=== PATIENT | female | born 1990 | race Caucasian/White ===

== ENCOUNTER 2016-08-22 22:34 | Emergency (ER) | payer BC ==
[2016-08-23 00:44] LABS: Hematocrit 39 % (35-47); Mean Corpuscular HGB Conc 34 g/dl (31-36); Mean Corpuscular Hemoglobin 29 pg (27-31); Mean Corpuscular Volume 87 fL (80-97); Mean Platelet Volume 10 um3 (7.4-10.4); Red Blood Count 4.44 10^6/ul (4.0-5.4); Red Cell Distribution Width 14 % (10.5-15); White Blood Count 9.6 10^3/ul (3.5-10.8)
[2016-08-23 00:56] LABS: Albumin 4.3 g/dL (3.2-5.2); BUN/Creatinine Ratio 17.7 (8-20); Calcium 9.4 mg/dL (8.6-10.3); EGFR Non-African American 90.2 (>60); Globulin 3.7 g/dL (2-4); Potassium 3.5 mmol/L (3.5-5.0); Total Bilirubin 0.3 mg/dL (0.2-1.0)
[2016-08-23] MEDS ORDERED: Amoxicillin CAP* 500 MG PO ONE (01:21)
--- NOTE | 2016-08-23 01:56 | ED ---
Luis Antonio Dotson Aidan, scribed for Shreyas Grossman on 08/23/16 at 0045 . Respiratory - HPI Summary HPI Summary: 25 y/o female presents to the ED with a complaint of an acute, constant, moderate sore throat that has persisted for the past 3 days and acute, constant , moderate bilateral ear pain that began today. Additionally, she feels heavy in her chest and as though there is fluid in her chest. After an exercise, she felt short of breath. Lastly, she has a dry cough with mild associated pain. Pt is currently on BCPs. She denies smoking or Hx of asthma. - History of Current Complaint Chief Complaint: EDUpperRespComplaint Stated Complaint: UPPER RESPIRATORY/CHEST DISCOMFORT Time Seen by Provider: 08/23/16 00:08 Hx Obtained From: Patient Onset/Duration: Sudden Onset, Lasting Hours - ear pain, Lasting Days - sore throat Timing: Constant Initial Severity: Moderate Current Severity: Moderate Pain Intensity: 6 Character: Cough (Nonproductive), Dyspnea on Exertion - She mentioned feeling short of breath after exercising Sputum Amount: None Aggravating Factor(s): Other - her dry cough causes pain Alleviating Factor(s): Nothing - unknown Associated Signs and Symptoms: SOB - SOB on exertion, sore throat, bilateral ear pain, dry cough - Allergy/Home Medications Allergies/Adverse Reactions: Allergies Allergy/AdvReac Type Severity Reaction Status Date / Time No Known Allergies Allergy Verified 08/22/16 22:48 PMH/Surg Hx/FS Hx/Imm Hx Endocrine/Hematology History: Denies: Hx Diabetes Respiratory History: Denies: Hx Asthma - Surgical History Surgery Procedure, Year, and Place: Ear Tubes as a child Infectious Disease History: No Infectious Disease History: Denies: Hx Clostridium Difficile, Hx Hepatitis, Hx Human Immunodeficiency Virus (HIV), Hx of Known/Suspected MRSA, Hx Shingles, Hx Tuberculosis, Hx Known/ Suspected VRE, Hx Known/Suspected VRSA, History Other Infectious Disease, Traveled Outside the [place] in Last 30 Days - Family History Known Family History: Positive: Hypertension, Diabetes - Social History Occupation: Employed Full-time Lives: Alone Alcohol Use: Occasionally Substance Use Type: Reports: None Smoking Status (MU): Never Smoked Tobacco Review of Systems Constitutional: Negative Eyes: Negative Positive: Sore Throat, Ear Ache - bilateral. Negative: Epistaxis, Dental Pain, Nasal Discharge Positive: Shortness Of Breath - on exertion, Cough - dry, Other - feeling as though lungs have fluid in them/heavy chest Gastrointestinal: Negative Genitourinary: Negative Musculoskeletal: Negative Skin: Negative Neurological: Negative Psychological: Normal All Other Systems Reviewed And Are Negative: Yes Physical Exam Vital Signs On Initial Exam: Initial Vitals Temp Pulse Resp BP Pulse Ox 98.1 F 70 16 141/75 100 08/22/16 22:40 08/22/16 22:40 08/22/16 22:40 08/22/16 22:40 08/22/16 22:40 - Patricia Coma Scale Coma Scale Total: 15 Diagnostics - Vital Signs Vital Signs Temp Pulse Resp BP Pulse Ox 08/22/16 22:48 98.1 F 70 16 141/75 100 08/22/16 22:40 98.1 F 70 16 141/75 100 - Laboratory Result Diagrams: 08/23/16 00:25 08/23/16 00:25 Lab Statement: Any lab studies that have been ordered have been reviewed, and results considered in the medical decision making process. Disposition - Course Course Of Treatment: The patient has pharyngitis and otitis. - Diagnoses Provider Diagnoses: Pharyngitis, Otitis Discharge - Discharge Plan Condition: Stable Disposition: HOME Discharge Disposition Comment: Please return to the ED if symptoms worsen within 72 hours. Prescriptions: Amoxicillin (*) [Amoxicillin 875 MG (*)] 875 mg PO BID #20 tab Patient Education Materials: Pharyngitis (ED), Otitis Media (ED) Referrals: No Primary Care Phys,NOPCP [Primary Care Provider] - The documentation as recorded by the Luis Antonio segal Aidan accurately reflects the service I personally performed and the decisions made by , Shreyas Grossman.
[2016-08-23 02:16] VITALS: BP 130/63
== END 2016-08-23 02:10 | disposition home or self-care (01) ==
LOC: ED 22:34
DX: J02.9 Acute pharyngitis, unspecified (principal); R06.02 Shortness of breath; H66.90 Otitis media, unspecified, unspecified ear; H92.03 Otalgia, bilateral; R05 Cough
CPT/HCPCS: 36415; 80053; 84484; 85025; 85379; 99282; A9270-GY

== ENCOUNTER 2016-11-25 13:09 | Emergency (ER) | payer BC ==
[2016-11-25 13:19] VITALS: BP 131/68
--- NOTE | 2016-11-25 13:34 | UC ---
Complaint Female HPI - HPI Summary HPI Summary: Patient complaining of dysuria for the past 24 hours. Denies fever, or back pain - History Of Current Complaint Chief Complaint: UCGU Stated Complaint: URINARY COMPLAINT Time Seen by Provider: 11/25/16 13:22 Hx Obtained From: Patient Hx Last Menstrual Period: 10/28/16 ?: No Onset/Duration: Sudden Onset, Lasting Hours Timing: Lasting Hours Severity Initially: Mild Severity Currently: Mild Character: Burning Aggravating Factor(s): Urination - Allergies/Home Medications Allergies/Adverse Reactions: Allergies Allergy/AdvReac Type Severity Reaction Status Date / Time No Known Allergies Allergy Verified 11/25/16 13:19 PMH/Surg Hx/FS Hx/Imm Hx Previously Healthy: Yes - Surgical History Surgical History: Yes Surgery Procedure, Year, and Place: Ear Tubes as a child - Family History Known Family History: Positive: Hypertension, Diabetes - Social History Alcohol Use: Rare Substance Use Type: None Smoking Status (MU): Never Smoked Tobacco Household Exposure Type: Cigarettes Review of Systems Constitutional: Negative Skin: Negative Eyes: Negative ENT: Negative Respiratory: Negative Cardiovascular: Negative Gastrointestinal: Negative Genitourinary: Dysuria, Frequency Motor: Negative Neurovascular: Negative Musculoskeletal: Negative Neurological: Negative Psychological: Negative All Other Systems Reviewed And Are Negative: Yes Physical Exam Triage Information Reviewed: Yes Appearance: Well-Appearing, Well-Nourished, Pain Distress Vital Signs: Initial Vital Signs Temp 98.2 F 11/25/16 13:14 Pulse 72 11/25/16 13:14 Resp 17 11/25/16 13:14 BP 131/68 11/25/16 13:14 Pulse Ox 100 11/25/16 13:14 Vital Signs Reviewed: Yes Eye Exam: Normal ENT Exam: Normal Dental Exam: Normal Neck exam: Normal Respiratory Exam: Normal Cardiovascular Exam: Normal Abdomen Description: Positive: Nontender, No Organomegaly, Soft, CVA Tenderness (R) - neg, CVA Tenderness (L) - neg Bowel Sounds: Positive: Present Musculoskeletal Exam: Normal Neurological Exam: Normal Psychological Exam: Normal Skin Exam: Normal Complaint Female Dx - Course Course Of Treatment: hx obtained, exam performed, meds reviewed, treated for UTI - Differential Dx/Diagnosis Differential Diagnosis/HQI/PQRI: Ureteral Stone, Urinary Tract Infection Provider Diagnoses: UTI Discharge - Discharge Plan Condition: Stable Disposition: HOME Prescriptions: Cephalexin CAP* [Keflex CAP*] 500 mg PO BID #14 cap Patient Education Materials: Urinary Tract Infection in Women (ED) Additional Instructions: 1. Take the medication as prescribed. 2. Increase your fluid intake and get plenty of rest.
== END 2016-11-25 13:54 | disposition home or self-care (01) ==
LOC: UCCORT 13:09
DX: N39.0 Urinary tract infection, site not specified (principal); Z32.02 Encounter for pregnancy test, result negative; Z77.22 Contact with and (suspected) exposure to environmental tobacco smoke (acute) (chronic)
CPT/HCPCS: 81003; 84702; 87086; 99212; G0463

== ENCOUNTER 2017-05-04 20:51 | Emergency (ER) | payer BC ==
[2017-05-04 21:09] VITALS: BP 130/64
--- NOTE | 2017-05-04 21:26 | UC ---
Complaint Female HPI - HPI Summary HPI Summary: Pt c/o low back discomfort, suprapubic discomfort, and vaginal discharge that is yellow and odiferous. Pt reports that she had unprotected sexual intercourse 2 weeks ago. - History Of Current Complaint Stated Complaint: URINARY Time Seen by Provider: 05/04/17 21:06 Hx Obtained From: Patient Hx Last Menstrual Period: 04/23/17 ?: No Onset/Duration: Gradual Onset, Lasting Weeks, Still Present Timing: Constant Severity Initially: Mild Severity Currently: Mild Character: Dull, Burning Aggravating Factor(s): Urination Associated Signs And Symptoms: Positive: Back Pain, Vaginal Discharge - Risk Factors Ectopic Risk Factor: Negative Ovarian Torsion Risk Factor: Negative - Allergies/Home Medications Allergies/Adverse Reactions: Allergies Allergy/AdvReac Type Severity Reaction Status Date / Time No Known Allergies Allergy Verified 05/04/17 21:09 Home Medications: Home Medications Venlafaxine HCl [Effexor XR-] 37.5 mg PO DAILY 05/04/17 [History Confirmed 05/04] PMH/Surg Hx/FS Hx/Imm Hx Previously Healthy: Yes - Surgical History Surgical History: Yes Surgery Procedure, Year, and Place: Ear Tubes as a child - Family History Known Family History: Positive: Hypertension, Diabetes - Social History Lives: With Family Alcohol Use: Rare Substance Use Type: None Smoking Status (MU): Never Smoked Tobacco Have You Smoked in the Last Year: No Household Exposure Type: Cigarettes - Immunization History Most Recent Influenza Vaccination: none 2016 Review of Systems Constitutional: Negative Skin: Negative Eyes: Negative ENT: Negative Respiratory: Negative Cardiovascular: Negative Gastrointestinal: Negative Genitourinary: Dysuria, Frequency, Vaginal/Penile Discharge Motor: Negative Neurovascular: Negative Musculoskeletal: Negative Neurological: Negative Psychological: Negative Is Patient Immunocompromised?: No All Other Systems Reviewed And Are Negative: Yes Physical Exam Triage Information Reviewed: Yes Appearance: Well-Appearing Vital Signs: Initial Vital Signs Temp 99.2 F 05/04/17 20:59 Pulse 72 05/04/17 20:59 Resp 20 05/04/17 20:59 BP 130/64 05/04/17 20:59 Pulse Ox 100 05/04/17 20:59 Vital Signs Reviewed: Yes Eye Exam: Normal ENT Exam: Normal Neck exam: Normal Respiratory Exam: Normal Cardiovascular Exam: Normal Abdominal Exam: Normal Abdomen Description: Positive: Other: - suprapubic tenderness, pt dewclined vaginal exam Musculoskeletal Exam: Normal Neurological Exam: Normal Psychological Exam: Normal Skin Exam: Normal Complaint Female Dx - Differential Dx/Diagnosis Differential Diagnosis/HQI/PQRI: Sexually Transmitted Disease, Urinary Tract Infection Provider Diagnoses: UTI. VAginal discharge-STD exposure? Discharge - Discharge Plan Condition: Stable Disposition: HOME Prescriptions: Cephalexin CAP* [Keflex 500 CAP*] 500 mg PO Q12H #14 cap Patient Education Materials: Urinary Tract Infection in Women (ED) Referrals: No Primary Care Phys,NOPCP [Primary Care Provider] - If Needed
[2017-05-04] MEDS ORDERED: cefTRIAXone VIAL(*) 250 MG VIAL IM ONE (21:27)
[2017-05-04] MEDS ORDERED: Azithromycin TAB* 250 MG PO ONE (21:27)
[2017-05-04] MEDS ORDERED: Lidocaine 1% MPF* 2 ML VIAL ONE (21:48)
== END 2017-05-04 22:13 | disposition home or self-care (01) ==
LOC: UCCORT 20:51
DX: N39.0 Urinary tract infection, site not specified (principal); N89.8 Other specified noninflammatory disorders of vagina; Z77.22 Contact with and (suspected) exposure to environmental tobacco smoke (acute) (chronic)
CPT/HCPCS: 81003; 84702; 87086; 87491; 87591; 96372; 99212; A9270-GY; G0463; J0696

== ENCOUNTER 2017-05-07 16:53 | Emergency (ER) | payer BC ==
[2017-05-07 18:26] VITALS: BP 115/63
[2017-05-07] MEDS ORDERED: Fluconazole 100 MG TAB* TAB PO ONE (18:39)
--- NOTE | 2017-05-07 18:43 | UC ---
Skin Complaint HPI - HPI Summary HPI Summary: Pt c/o gradual onset of red raised, tender/burning grown and labias. Pt was treated 3 days ago for STI exposure and UTI. Pt also c/o thick white vaginal discharge. - History of Current Complaint Chief Complaint: UCSkin Time Seen by Provider: 05/07/17 18:28 Stated Complaint: RASH Hx Obtained From: Patient Hx Last Menstrual Period: 04/16/17 ?: No Onset/Duration: Gradual Onset, Lasting Days, Still Present, Worse Since - onset Timing: Constant Onset Severity: Mild Current Severity: Moderate Location: Discrete Character: Redness, Raised Aggravating Factor(s): Touch Alleviating Factor(s): Unknown Associated Signs & Symptoms: Positive: Rash, Tenderness Related History: Recent change in medication - Allergy/Home Medications Allergies/Adverse Reactions: Allergies Allergy/AdvReac Type Severity Reaction Status Date / Time No Known Allergies Allergy Verified 05/07/17 18:26 Review of Systems Constitutional: Negative Skin: Rash Eyes: Negative ENT: Negative Respiratory: Negative Cardiovascular: Negative Gastrointestinal: Negative Genitourinary: Vaginal/Penile Burning, Vaginal/Penile Discharge Motor: Negative Neurovascular: Negative Musculoskeletal: Negative Neurological: Negative Psychological: Negative Is Patient Immunocompromised?: No All Other Systems Reviewed And Are Negative: Yes PMH/Surg Hx/FS Hx/Imm Hx Previously Healthy: Yes - Surgical History Surgical History: Yes Surgery Procedure, Year, and Place: Ear Tubes as a child - Family History Known Family History: Positive: Hypertension, Diabetes - Social History Occupation: Employed Full-time Lives: With Family Alcohol Use: Rare Substance Use Type: None Smoking Status (MU): Never Smoked Tobacco Have You Smoked in the Last Year: No Household Exposure Type: Cigarettes - Immunization History Most Recent Influenza Vaccination: none 2016 Physical Exam Triage Information Reviewed: Yes Appearance: Well-Appearing Vital Signs: Initial Vital Signs Temp 99.5 F 05/07/17 18:21 Pulse 65 05/07/17 18:21 Resp 16 05/07/17 18:21 BP 115/63 05/07/17 18:21 Pulse Ox 100 05/07/17 18:21 Vital Signs Reviewed: Yes Eye Exam: Normal ENT Exam: Normal Neck exam: Normal Respiratory Exam: Normal Cardiovascular Exam: Normal Abdominal Exam: Normal Musculoskeletal Exam: Normal Neurological Exam: Normal Psychological Exam: Normal Skin Exam: Other - groin and outer labia raised red skin, thick white/green discahrge in folds of labia majora Course/Dx - Differential Diagnoses - Skin Complaint Differential Diagnoses: Tinea - Diagnoses Provider Diagnoses: vulvovaginal candiasis Discharge - Discharge Plan Condition: Stable Disposition: HOME Prescriptions: Fluconazole 100 MG TAB* [Diflucan 100 MG TAB*] 100 mg PO DAILY #2 tab Miconazole Nitrate Vaginal [Monistat 3 Combination Pa 200-2 mg-% (9Gm)] 1 kit VA DAILY #1 kit Patient Education Materials: Vulvovaginal Candidiasis (ED), Skin Yeast Infection (ED) Referrals: No Primary Care Phys,NOPCP [Primary Care Provider] - If Needed
== END 2017-05-07 18:52 | disposition home or self-care (01) ==
LOC: UCCORT 16:53
DX: B37.3 Candidiasis of vulva and vagina (principal); Z87.440 Personal history of urinary (tract) infections; Z77.22 Contact with and (suspected) exposure to environmental tobacco smoke (acute) (chronic)
CPT/HCPCS: 87070; 99212; A9270-GY; G0463

== ENCOUNTER 2017-10-25 21:18 | Emergency (ER) | payer SELFPAY ==
[2017-10-25 21:32] VITALS: BP 141/62
[2017-10-25] MEDS ORDERED: predniSONE TAB* 20 MG PO ONE (21:40)
--- NOTE | 2017-10-25 21:40 | UC ---
Throat Pain/Nasal Lucho HPI - HPI Summary HPI Summary: Started with sore throat yesterday. Much worse today. Some congestion. No cough. Some chills. Slight headache - History of Current Complaint Stated Complaint: COLD SYMPTOMS/EAR PAIN Hx Obtained From: Patient Hx Last Menstrual Period: 09/30/17 ?: No Onset/Duration: Sudden Onset, Lasting Days - 1, Worse Since - onset Severity: Severe Pain Intensity: 8 Cough: None Associated Signs & Symptoms: Positive: Dysphagia, Nasal Discharge Related History: Seasonal Allergies - Allergies/Home Medications Allergies/Adverse Reactions: Allergies Allergy/AdvReac Type Severity Reaction Status Date / Time No Known Allergies Allergy Verified 10/25/17 21:28 Home Medications: Home Medications Norgestimate-Ethinyl Estradiol [Tate-Linyah 28 Tablet] 1 tab PO DAILY 10/25/17 [ History Confirmed 10/25/17] Venlafaxine EXT RELEASE CAP* [Effexor Xr CAP*] 75 mg PO DAILY 10/25/17 [History Confirmed 10/25/17] PMH/Surg Hx/FS Hx/Imm Hx Previously Healthy: Yes - Surgical History Surgical History: Yes Surgery Procedure, Year, and Place: Ear Tubes as a child - Family History Known Family History: Positive: Cardiac Disease, Hypertension, Diabetes - Social History Occupation: Employed Part-time Lives: Alone - with Boyfriend Alcohol Use: Rare Substance Use Type: None Smoking Status (MU): Never Smoked Tobacco Have You Smoked in the Last Year: No Household Exposure Type: Cigarettes - Immunization History Most Recent Influenza Vaccination: none 2017 Review of Systems Constitutional: Chills ENT: Sore Throat, Nasal Discharge Is Patient Immunocompromised?: No All Other Systems Reviewed And Are Negative: Yes Physical Exam Triage Information Reviewed: Yes Appearance: Ill-Appearing, Pain Distress - with swollowing, Obese Vital Signs: Initial Vital Signs Temp 99 F 10/25/17 21:25 Pulse 97 10/25/17 21:25 Resp 18 10/25/17 21:25 BP 141/62 10/25/17 21:25 Pulse Ox 100 10/25/17 21:25 Vital Signs Reviewed: Yes Eyes: Positive: Conjunctiva Clear ENT: Positive: Pharynx normal - post posterior pharynx lymphoid hyperplasia., Nasal congestion, TMs normal - TM's retracted Neck exam: Normal Respiratory Exam: Normal Respiratory: Positive: Wheezing - Slight wheeze with cough Cardiovascular Exam: Normal Musculoskeletal Exam: Normal Neurological Exam: Normal Psychological Exam: Normal Skin Exam: Normal Throat Pain/Nasal Course/Dx - Differential Dx/Diagnosis Differential Diagnosis/HQI/PQRI: Peritonsillar Abscess, Pharyngitis, Tonsillitis , URI Provider Diagnoses: Acute URI. Acute pharygitis Discharge - Sign-Out/Discharge Documenting (check all that apply): Discharge/Admit/Transfer - Discharge Plan Condition: Stable Disposition: HOME Prescriptions: predniSONE TAB* [Deltasone 20 MG TAB*] 20 mg PO DAILY #18 tab Patient Education Materials: Pharyngitis (ED), Prednisone (By mouth), Upper Respiratory Infection (ED) Referrals: No Primary Care Phys,NOPCP [Primary Care Provider] - - Billing Disposition and Condition Condition: STABLE Disposition: Home
[2017-10-25] MEDS ORDERED: predniSONE TAB* 20 MG ONE (21:41)
== END 2017-10-25 21:49 | disposition home or self-care (01) ==
LOC: UCCORT 21:18
DX: J06.9 Acute upper respiratory infection, unspecified (principal); J02.9 Acute pharyngitis, unspecified; Z77.22 Contact with and (suspected) exposure to environmental tobacco smoke (acute) (chronic)
CPT/HCPCS: 87651; 99212; G0463; J7512

== ENCOUNTER 2017-10-30 11:14 | Emergency (ER) | payer SELFPAY ==
[2017-10-30 11:48] VITALS: BP 139/83
--- NOTE | 2017-10-30 12:00 | UC ---
Respiratory Complaint HPI - HPI Summary HPI Summary: seen 5 days ago and diagnosed with viral pharyngitis---rx with prednisone. Her today with body aches, fatigue, throat seems better on the prednisone. - History of Current Complaint Chief Complaint: UCGeneralIllness Stated Complaint: RECHECK UPPER RESP,ST,SKIN Time Seen by Provider: 10/30/17 11:48 Hx Obtained From: Patient Hx Last Menstrual Period: 10/02/17 ?: No Onset/Duration: Sudden Onset, Lasting Days - 7, Still Present Timing: Constant Severity Initially: Moderate Severity Currently: Moderate Aggravating Factors: Nothing Associated Signs And Symptoms: Positive: URI - Allergies/Home Medications Allergies/Adverse Reactions: Allergies Allergy/AdvReac Type Severity Reaction Status Date / Time No Known Allergies Allergy Verified 10/30/17 11:48 PMH/Surg Hx/FS Hx/Imm Hx Previously Healthy: No Psychological History: Depression - Surgical History Surgical History: Yes Surgery Procedure, Year, and Place: Ear Tubes as a child - Family History Known Family History: Positive: Cardiac Disease, Hypertension, Diabetes - Social History Occupation: Employed Full-time - cable [employer] Lives: With Family Alcohol Use: Rare Substance Use Type: None Smoking Status (MU): Never Smoked Tobacco Have You Smoked in the Last Year: No Household Exposure Type: Cigarettes - Immunization History Most Recent Influenza Vaccination: none 2016 Review of Systems Constitutional: Chills, Fatigue Skin: Negative Eyes: Negative ENT: Sore Throat Respiratory: Negative Cardiovascular: Negative Gastrointestinal: Negative Genitourinary: Negative Motor: Negative Neurovascular: Negative Musculoskeletal: Arthralgia, Myalgia Neurological: Other - fatigue Psychological: Negative Is Patient Immunocompromised?: No All Other Systems Reviewed And Are Negative: Yes Physical Exam Triage Information Reviewed: Yes Appearance: Well-Appearing, No Pain Distress, Well-Nourished Vital Signs: Initial Vital Signs Temp 98.5 F 10/30/17 11:42 Pulse 82 10/30/17 11:42 Resp 18 10/30/17 11:42 BP 139/83 10/30/17 11:42 Pulse Ox 100 10/30/17 11:42 Vital Signs Reviewed: Yes Eye Exam: Normal Eyes: Positive: Conjunctiva Clear ENT Exam: Normal ENT: Positive: Normal ENT inspection, Hearing grossly normal, Pharyngeal erythema, TMs normal, Uvula midline. Negative: Nasal congestion, Tonsillar swelling, Tonsillar exudate, Trismus, Muffled voice, Hoarse voice, Dental tenderness, Sinus tenderness Dental Exam: Normal Neck exam: Normal Neck: Positive: Supple, Nontender Respiratory Exam: Normal Respiratory: Positive: Chest non-tender, Lungs clear, Normal breath sounds, No respiratory distress, No accessory muscle use Cardiovascular Exam: Normal Cardiovascular: Positive: RRR, No Murmur, Pulses Normal, Brisk Capillary Refill Abdominal Exam: Normal Abdomen Description: Positive: Nontender, No Organomegaly, Soft. Negative: CVA Tenderness (R), CVA Tenderness (L), Distended, Guarding, Hepatomegaly, Peritoneal Signs, Splenomegaly Bowel Sounds: Positive: Present Musculoskeletal Exam: Normal Musculoskeletal: Positive: Strength Intact, ROM Intact, No Edema Neurological Exam: Normal Neurological: Positive: Alert, Muscle Tone Normal Psychological Exam: Normal Skin Exam: Normal UC Diagnostic Evaluation - Laboratory O2 Sat by Pulse Oximetry: 100 Respiratory Course/Dx - Course Course Of Treatment: labs-cbc, mono, cmp rest work note finish prednisone follow with pcp prn (referrals made) - Differential Dx/Diagnosis Provider Diagnoses: Viral illness Discharge - Sign-Out/Discharge Documenting (check all that apply): Patient Departure - Discharge Plan Condition: Stable Disposition: HOME Patient Education Materials: Pharyngitis (ED), Viral Syndrome (ED) Forms: *Work Release Referrals: [facility] [Outside] - If Needed MARLIN Yousif [Medical Doctor] - If Needed - Billing Disposition and Condition Condition: STABLE Disposition: Home
[2017-10-30 19:01] LABS: ABS Basophils 0 10^3/ul (0-0.2); ABS Eosinophils 0.1 10^3/ul (0-0.6); ABS Lymphocytes 1.5 10^3/ul (1.0-4.8); ABS Monocytes 0.5 10^3/ul (0-0.8); ABS Neutrophils 11.7 10^3/ul (1.5-7.7); ABS Nucleated RBC 0 10^3/ul; Eosinophil % 0.5 % (0-6); Hematocrit 40 % (35-47); Hemoglobin 13.5 g/dl (12.0-16.0); Lymphocyte % 10.6 % (25-47); Mean Corpuscular HGB Conc 34 g/dl (31-36); Mean Corpuscular Hemoglobin 30 pg (27-31); Mean Corpuscular Volume 89 fL (80-97); Mean Platelet Volume 9.6 um3 (7.4-10.4); Nucleated Red Blood Cells % 0; Platelet Count 382 10^3/ul (150-450); Red Blood Count 4.53 10^6/ul (4.00-5.40); Red Cell Distribution Width 14 % (10.5-15); White Blood Count 13.7 10^3/ul (3.5-10.8)
[2017-10-30 19:08] LABS: EGFR Non-African American 108.1 (>60)
--- NOTE | 2017-10-31 08:03 | UC ---
- Progress Note Progress Note: Reviewed blood work and progress note from 10/30/17. RN to call pt, monospot negative, WBC elevated and BS 112, but has taken prednisone. RN to remind pt to f/u with pcp, if possible early next week. Seek medical attention for worse or new problems in the meantime. Discharge - Sign-Out/Discharge Documenting (check all that apply): Post-Discharge Follow Up - Discharge Plan Condition: Stable Disposition: HOME Patient Education Materials: Pharyngitis (ED), Viral Syndrome (ED) Forms: *Work Release Referrals: [facility] [Outside] - If Needed MARLIN Yousif [Medical Doctor] - If Needed - Billing Disposition and Condition Condition: STABLE Disposition: Home
== END 2017-10-30 12:31 | disposition home or self-care (01) ==
LOC: UCCORT 11:14
DX: B34.9 Viral infection, unspecified (principal)
CPT/HCPCS: 36415; 80053; 85025; 86308; 99211; G0463

== ENCOUNTER 2017-11-24 17:17 | Emergency (ER) | payer SELFPAY ==
[2017-11-24 18:28] VITALS: BP 136/95
--- NOTE | 2017-11-24 19:01 | UC ---
Complaint Female HPI - HPI Summary HPI Summary: felt like a UTI was starting 3 days ago-today symptoms got much worse, urinaty urgency burning frequency and one episode of incontinence - History Of Current Complaint Chief Complaint: UCGU Stated Complaint: URINARY Time Seen by Provider: 11/24/17 18:43 Hx Obtained From: Patient Hx Last Menstrual Period: 10/23/17 ?: No Onset/Duration: Sudden Onset, Lasting Days - 4, Still Present, Worse Since - today Timing: Constant Pain Intensity: 7 Pain Scale Used: 0-10 Numeric Character: Burning Aggravating Factor(s): Urination Alleviating Factor(s): Nothing Associated Signs And Symptoms: Positive: Back Pain - Allergies/Home Medications Allergies/Adverse Reactions: Allergies Allergy/AdvReac Type Severity Reaction Status Date / Time No Known Allergies Allergy Verified 11/24/17 18:28 Home Medications: Home Medications busPIRone TAB* [Buspar TAB*] 10 mg PO BID 11/24/17 [History Confirmed 11/24/17] PMH/Surg Hx/FS Hx/Imm Hx Previously Healthy: No Psychological History: Anxiety, Depression - Surgical History Surgical History: Yes Surgery Procedure, Year, and Place: Ear Tubes as a child - Family History Known Family History: Positive: Cardiac Disease, Hypertension, Diabetes - Social History Occupation: Employed Full-time Lives: With Family Alcohol Use: Rare Substance Use Type: None Smoking Status (MU): Never Smoked Tobacco Have You Smoked in the Last Year: No Household Exposure Type: Cigarettes - Immunization History Most Recent Influenza Vaccination: none 2016 Review of Systems Constitutional: Negative Skin: Negative Eyes: Negative ENT: Negative Respiratory: Negative Cardiovascular: Negative Gastrointestinal: Negative Genitourinary: Dysuria, Frequency, Urgency Motor: Negative Neurovascular: Negative Musculoskeletal: Negative Neurological: Negative Psychological: Negative Is Patient Immunocompromised?: No All Other Systems Reviewed And Are Negative: Yes Physical Exam Triage Information Reviewed: Yes Appearance: Well-Appearing, No Pain Distress, Well-Nourished Vital Signs: Initial Vital Signs Temp 98.3 F 11/24/17 18:21 Pulse 100 11/24/17 18:21 Resp 18 11/24/17 18:21 BP 136/95 11/24/17 18:21 Pulse Ox 100 11/24/17 18:21 Vital Signs Reviewed: Yes Eye Exam: Normal Eyes: Positive: Conjunctiva Clear ENT Exam: Normal ENT: Positive: Normal ENT inspection, Hearing grossly normal. Negative: Trismus , Muffled voice, Hoarse voice Neck exam: Normal Neck: Positive: Supple, Nontender Respiratory Exam: Normal Respiratory: Positive: Normal breath sounds, No respiratory distress, No accessory muscle use Cardiovascular Exam: Normal Cardiovascular: Positive: RRR, No Murmur, Pulses Normal, Brisk Capillary Refill Abdominal Exam: Normal Abdomen Description: Positive: Nontender, No Organomegaly, Soft. Negative: CVA Tenderness (R), CVA Tenderness (L), Distended, Guarding, Hernia @, McBurney's Point Tenderness, Peritoneal Signs Bowel Sounds: Positive: Present Musculoskeletal Exam: Normal Musculoskeletal: Positive: Strength Intact, ROM Intact Neurological Exam: Normal Neurological: Positive: Alert, Muscle Tone Normal Psychological Exam: Normal Skin Exam: Normal Diagnostics - Laboratory Diagnostic Studies Completed/Ordered: ua- (-) preg, +3 blood, +1 leukoesterace Complaint Female Dx - Course Course Of Treatment: increase fluids, bactrim, pyridium, follow with pcp or [facility]--will culture urine, - Differential Dx/Diagnosis Provider Diagnoses: UTI Discharge - Sign-Out/Discharge Documenting (check all that apply): Patient Departure - Discharge Plan Condition: Stable Disposition: HOME Prescriptions: Phenazopyridine TAB* [Pyridium 100 mg TAB*] 100 mg PO TID PRN #9 tab PRN Reason: urinary pain and burning Sulfamethox/Trimethoprim DS* [Bactrim DS 800/160 TAB*] 1 tab PO BID #10 tab Patient Education Materials: Phenazopyridine (By mouth), Urinary Tract Infection in Women (ED), Urinary Urgency and Frequency (DC) Forms: *Work Release Referrals: [facility] [Outside] - If Needed MARLIN Lopez [Medical Doctor] - If Needed - Billing Disposition and Condition Condition: STABLE Disposition: Home
== END 2017-11-24 19:15 | disposition home or self-care (01) ==
LOC: UCCORT 17:17
DX: N39.0 Urinary tract infection, site not specified (principal); F41.8 Other specified anxiety disorders
CPT/HCPCS: 81003; 84702; 87086; 99212; G0463

== ENCOUNTER 2018-02-26 07:17 | Emergency (ER) | payer BC ==
[2018-02-26 07:40] VITALS: BP 140/73
[2018-02-26] MEDS ORDERED: Albuterol HFA INHALER* 8 gm MDI INH ONE (07:54)
--- NOTE | 2018-02-26 08:00 | ED ---
Respiratory - HPI Summary HPI Summary: pt states that she started to feel ill yesterday. she states that she had mild cough and intermittent wheezing. she states several people are sick at work. she denies any productive cough, fever, chills. she has no complaints currently. - History of Current Complaint Chief Complaint: UCRespiratory Stated Complaint: UPPER RESPITORY Hx Obtained From: Patient Onset/Duration: Gradual Onset Initial Severity: Mild Current Severity: None Pain Intensity: 5 Character: Wheezing - intermittently, Cough (Nonproductive) Sputum Amount: None Aggravating Factor(s): Nothing Alleviating Factor(s): Nothing - Allergy/Home Medications Allergies/Adverse Reactions: Allergies Allergy/AdvReac Type Severity Reaction Status Date / Time No Known Allergies Allergy Verified 02/26/18 07:31 PMH/Surg Hx/FS Hx/Imm Hx Previously Healthy: Yes Endocrine/Hematology History: Denies: Hx Diabetes Respiratory History: Denies: Hx Asthma - Surgical History Surgery Procedure, Year, and Place: Ear Tubes as a child Infectious Disease History: No Infectious Disease History: Denies: Hx Clostridium Difficile, Hx Hepatitis, Hx Human Immunodeficiency Virus (HIV), Hx of Known/Suspected MRSA, Hx Shingles, Hx Tuberculosis, Hx Known/ Suspected VRE, Hx Known/Suspected VRSA, History Other Infectious Disease, Traveled Outside the [place] in Last 30 Days - Family History Known Family History: Positive: Cardiac Disease, Hypertension, Diabetes - Social History Alcohol Use: Rare Substance Use Type: Reports: Marijuana Substance Use Comment - Amount & Last Used: OCCASIONALLY Smoking Status (MU): Never Smoked Tobacco Have You Smoked in the Last Year: No Review of Systems Constitutional: Negative Eyes: Negative ENT: Negative Positive: Other Positive: Cough - mild wheezing Gastrointestinal: Negative Genitourinary: Negative Musculoskeletal: Negative Skin: Negative Neurological: Negative Psychological: Normal All Other Systems Reviewed And Are Negative: No Physical Exam Triage Information Reviewed: Yes Vital Signs On Initial Exam: Initial Vitals Temp Pulse Resp BP Pulse Ox 97.6 F 77 18 140/73 100 02/26/18 07:33 02/26/18 07:33 02/26/18 07:33 02/26/18 07:33 02/26/18 07:33 Vital Signs Reviewed: Yes Appearance: Positive: Well-Appearing, No Pain Distress Skin: Positive: Warm, Dry Head/Face: Positive: Normal Head/Face Inspection Eyes: Positive: Normal, EOMI ENT: Positive: Normal ENT inspection, Hearing grossly normal, Pharynx normal Neck: Positive: Supple, Nontender Respiratory/Lung Sounds: Positive: Clear to Auscultation, Breath Sounds Present Cardiovascular: Positive: Normal, RRR Abdomen Description: Positive: Nontender, Soft Bowel Sounds: Positive: Present Musculoskeletal: Positive: Normal, Strength/ROM Intact Neurological: Positive: Normal, Sensory/Motor Intact, Alert, Oriented to Person Place, Time, CN Intact II-III Psychiatric: Positive: Normal AVPU Assessment: Alert Diagnostics - Vital Signs Vital Signs Temp Pulse Resp BP Pulse Ox 02/26/18 07:33 97.6 F 77 18 140/73 100 - Laboratory Lab Statement: Any lab studies that have been ordered have been reviewed, and results considered in the medical decision making process. Disposition - Course Course Of Treatment: pt appears to have a viral uri. it is very mild. pt will be given an inhaler and spacer. pt instructed how to use. no evidence of a bacterial infection. pt encouraged to f/u with pcp. - Diagnoses Provider Diagnoses: Viral upper respiratory illness Discharge - Sign-Out/Discharge Documenting (check all that apply): Patient Departure All imaging exams completed and their final reports reviewed: No Studies - Discharge Plan Condition: Stable Disposition: HOME Patient Education Materials: Wheezing (ED) Referrals: No Primary Care Phys,NOPCP [Primary Care Provider] - [facility] [Provider Group] Additional Instructions: return if worse or any new symptoms. Take all medications as previously instructed. - Billing Disposition and Condition Condition: STABLE Disposition: Home
== END 2018-02-26 08:14 | disposition home or self-care (01) ==
LOC: UCCORT 07:17
DX: J06.9 Acute upper respiratory infection, unspecified (principal)
CPT/HCPCS: 99212; A9270-GY; G0463

== ENCOUNTER 2018-06-14 20:44 | Emergency (ER) | payer BC ==
[2018-06-14 20:57] VITALS: BP 130/53
--- NOTE | 2018-06-14 21:03 | UC ---
Throat Pain/Nasal Lucho HPI - HPI Summary HPI Summary: 27-year-old female presents with complaints of headache and sore throat that started last evening. States she had one episode of vomiting last night and no further episodes today. Associated with some mild nasal congestion, denies fever, chills, ear pain, dysphagia, cough, chest pain, shortness of breath, abdominal pain, or diarrhea. - History of Current Complaint Chief Complaint: UCGeneralIllness Stated Complaint: SORE THROAT Time Seen by Provider: 06/14/18 20:50 Hx Obtained From: Patient Hx Last Menstrual Period: [id number] Pain Intensity: 4 - Allergies/Home Medications Allergies/Adverse Reactions: Allergies Allergy/AdvReac Type Severity Reaction Status Date / Time No Known Allergies Allergy Verified 06/14/18 20:57 Home Medications: Home Medications Ibuprofen TAB* [Motrin TAB* 400 MG] 400 mg PO Q6H PRN 06/14/18 [History Confirmed 06/14/18] PMH/Surg Hx/FS Hx/Imm Hx Previously Healthy: Yes Psychological History: Depression - Surgical History Surgical History: Yes Surgery Procedure, Year, and Place: Ear Tubes as a child - Family History Known Family History: Positive: Cardiac Disease, Hypertension, Diabetes - Social History Occupation: Employed Full-time Lives: Alone Alcohol Use: Rare Substance Use Type: Marijuana Substance Use Comment - Amount & Last Used: daily Smoking Status (MU): Never Smoked Tobacco Have You Smoked in the Last Year: No Household Exposure Type: Cigarettes - Immunization History Most Recent Influenza Vaccination: none 2016 Review of Systems All Other Systems Reviewed And Are Negative: Yes Constitutional: Negative: Fever, Chills Skin: Negative: Rash Eyes: Negative: Drainage, Eye Redness ENT: Positive: Sore Throat, Nasal Discharge. Negative: Ear Ache, Sinus Congestion, Sinus Pain/Tenderness Respiratory: Negative: Shortness Of Breath, Cough Cardiovascular: Negative: Palpitations, Chest Pain Gastrointestinal: Positive: Vomiting, Nausea. Negative: Abdominal Pain, Diarrhea Genitourinary: Positive: Negative Musculoskeletal: Positive: Negative Neurological: Positive: Headache Is Patient Immunocompromised?: No Physical Exam - Summary Physical Exam Summary: GENERAL APPEARANCE: Well developed, obese, alert and cooperative, and appears to be in no acute distress. EYES: Conjunctiva clear. No drainage. Vision is grossly intact. EARS: External auditory canals and tympanic membranes clear, hearing grossly intact. NOSE: Mild nasal congestion. No nasal discharge. THROAT: Mild pharyngeal erythema without exudate or lesions. Uvula midline. Oral cavity normal. Teeth and gingiva in good general condition. NECK: Neck supple, non-tender without lymphadenopathy. CARDIAC: Normal S1 and S2. No S3, S4 or murmurs. Rhythm is regular. There is no peripheral edema, cyanosis or pallor. Extremities are warm and well perfused. Capillary refill is less than 2 seconds. Peripheral pulses intact. LUNGS: Clear to auscultation without rales, rhonchi, wheezing or diminished breath sounds. ABDOMEN: Positive bowel sounds. Soft, nondistended, nontender. No guarding or rebound. No masses or hepatosplenomegally. MUSKULOSKELETAL: ROM intact to all extremities. No joint erythema or tenderness. Normal muscular development. Normal gait. SKIN: Skin normal color, texture and turgor with no lesions or eruptions. Triage Information Reviewed: Yes Vital Signs: Initial Vital Signs Temp 98.0 F 06/14/18 20:50 Pulse 90 06/14/18 20:50 Resp 16 06/14/18 20:50 BP 130/53 06/14/18 20:50 Pulse Ox 100 06/14/18 20:50 Vital Signs Reviewed: Yes Diagnostics - Laboratory Diagnostic Studies Completed/Ordered: Rapid strep negative Throat Pain/Nasal Course/Dx - Course Assessment/Plan: 27-year-old female presents with complaints of headache and sore throat that started last evening. States she had one episode of vomiting last night and no further episodes today. Associated with some mild nasal congestion, denies fever, chills, ear pain, dysphagia, cough, chest pain, shortness of breath, abdominal pain, or diarrhea. Afebrile. Vital signs stable. Exam reveals a young adult female in no acute distress with mild nasal congestion, mild pharyngeal erythema, 2+ tonsils without exudate, no cervical lymphadenopathy, and otherwise unremarkable exam. Rapid strep test was negative. Recommending symptomatic treatment for Christel rapid strep test in the clinic today was negative. Your symptoms are likely from a viral infection. Viral infections do not respond to antibiotics and typically run their course over 7-10 days. Use salt water gargles several times a day for your sore throat. Take acetaminophen (Tylenol) or ibuprofen (Advil, Motrin) according to directions as needed for fever or pain. You may also use Chloraseptic spray or Cepacol lozenges for some temporary pain relief from your sore throat. Follow- up with your primary care provider in 7 days if symptoms persist. Seek immediate medical attention in the emergency room if you have a persistent fever greater than 100.5 F despite taking acetaminophen or ibuprofen, you are unable to swallow, has difficulty breathing, or have any worsening of symptoms.. She is to follow-up with her primary care provider in 7 days if symptoms do not improve. Anticipatory guidance and warning symptoms are reviewed with the patient. Verbalizes understanding and agrees with plan of care. - Differential Dx/Diagnosis Differential Diagnosis/HQI/PQRI: Influenza, Pharyngitis, Sinusitis, Tonsillitis , URI Provider Diagnosis: Acute viral pharyngitis Discharge - Sign-Out/Discharge Documenting (check all that apply): Patient Departure All imaging exams completed and their final reports reviewed: No Studies - Discharge Plan Condition: Stable Disposition: HOME Patient Education Materials: Pharyngitis (ED) Forms: *Work Release Referrals: No Primary Care Phys,NOPCP [Primary Care Provider] - Additional Instructions: Your rapid strep test in the clinic today was negative. Your symptoms are likely from a viral infection. Viral infections do not respond to antibiotics and are limited to the treatment of symptoms. Viral infections typically run their course in 7-10 days. Drink plenty of fluids to avoid dehydration especially if you are running any fever. Use salt water gargles several times a day. Take over the counter acetaminophen (Tylenol) or ibuprofen (Advil, Motrin) according to directions as needed for pain or fever. You may also use Chloraseptic spray or Cepacol lonzenges according to directions which contain a numbing medication and can provide some temporary relief from your sore throat. Return here or follow up with your primary care provider in 7 days if symptoms persist. Seek immediate medical attention in the emergency room if you have fever greater than 100.5 F despite taking acetaminophen or ibuprofen, are unable to swallow or develop drooling, are unable to open your mouth fully, are unable to eat or drink, have pain that is not relieved with over the counter pain medication, or have any difficulty breathing. - Billing Disposition and Condition Condition: STABLE Disposition: Home
== END 2018-06-14 21:23 | disposition home or self-care (01) ==
LOC: UCCORT 20:44
DX: J02.9 Acute pharyngitis, unspecified (principal); R09.81 Nasal congestion
CPT/HCPCS: 87651; 99211; G0463

== ENCOUNTER 2018-12-25 09:00 | Emergency (ER) | payer BC, OTHER ==
[2018-12-25 10:52] VITALS: BP 143/69
--- NOTE | 2018-12-25 11:28 | ED ---
GI/ HPI - HPI Summary HPI Summary: 28 yr old with frequency of urination, burning, and suprapubic pain. Onset past day. No fever or chills. No NVD. No Dizziness. No other complaints. - History of Current Complaint Chief Complaint: UCGU Time Seen by Provider: 12/25/18 10:53 Stated Complaint: URINARY COMPLAINT Hx Last Menstrual Period: 11/28/18 Pain Intensity: 5 - Allergy/Home Medications Allergies/Adverse Reactions: Allergies Allergy/AdvReac Type Severity Reaction Status Date / Time No Known Allergies Allergy Verified 12/25/18 10:52 Home Medications: Home Medications NK [No Home Medications Reported] 12/25/18 [History Confirmed 12/25/18] PMH/Surg Hx/FS Hx/Imm Hx Endocrine/Hematology History: Denies: Hx Diabetes Respiratory History: Denies: Hx Asthma - Surgical History Surgery Procedure, Year, and Place: Ear Tubes as a child Infectious Disease History: No Infectious Disease History: Denies: Hx Clostridium Difficile, Hx Hepatitis, Hx Human Immunodeficiency Virus (HIV), Hx of Known/Suspected MRSA, Hx Shingles, Hx Tuberculosis, Hx Known/ Suspected VRE, Hx Known/Suspected VRSA, History Other Infectious Disease, Traveled Outside the [place] in Last 30 Days - Family History Known Family History: Positive: Cardiac Disease, Hypertension, Diabetes - Social History Occupation: Employed Full-time Alcohol Use: Rare Substance Use Type: Reports: Marijuana Substance Use Comment - Amount & Last Used: weekly Smoking Status (MU): Never Smoked Tobacco Have You Smoked in the Last Year: No Review of Systems Constitutional: Negative Positive: dysuria, frequency All Other Systems Reviewed And Are Negative: Yes Physical Exam Triage Information Reviewed: Yes Vital Signs On Initial Exam: Initial Vitals Temp Pulse Resp BP Pulse Ox 98.1 F 66 16 143/69 100 12/25/18 10:45 12/25/18 10:45 12/25/18 10:45 12/25/18 10:45 12/25/18 10:45 Vital Signs Reviewed: Yes Appearance: Positive: Well-Appearing, No Pain Distress Skin: Positive: Warm, Skin Color Reflects Adequate Perfusion Head/Face: Positive: Normal Head/Face Inspection Eyes: Positive: EOMI, ROSEANN ENT: Positive: Normal ENT inspection Neck: Positive: Nontender Respiratory/Lung Sounds: Positive: Clear to Auscultation, Breath Sounds Present Cardiovascular: Positive: RRR. Negative: Murmur Abdomen Description: Negative: CVA Tenderness (R), CVA Tenderness (L) Musculoskeletal: Positive: Strength/ROM Intact Neurological: Positive: Sensory/Motor Intact, Alert, Oriented to Person Place, Time, CN Intact II-III, Normal Gait, Speech Normal Psychiatric: Positive: Normal Diagnostics - Vital Signs Vital Signs Temp Pulse Resp BP Pulse Ox 12/25/18 10:45 98.1 F 66 16 143/69 100 - Laboratory Lab Results: Lab Results 12/25/18 Range/Units 10:57 POC Urine Color Yellow POC Urine Clarity Clear POC Urine pH 8.5 (5-9) POC Ur Specif [place] 1.015 (1.010-1.030) POC Urine Protein 1+ A (Negative) POC Ur Glucose (UA) Negative (Negative) POC Urine Ketones Negative (Negative) POC Urine Blood Negative (Negative) POC Urine Nitrite Negative (Negative) POC Urine Bilirubin Negative (Negative) POC Urine Urobilinogen 0.2 (Negative) POC U Leukocyte Esteras 1+ A (Negative) Lab Statement: Any lab studies that have been ordered have been reviewed, and results considered in the medical decision making process. GIGU Course/Dx - Course Course Of Treatment: 28 yr old with UTI. Rx bactrim DS. - Diagnoses Provider Diagnoses: UTI (urinary tract infection) Discharge ED - Sign-Out/Discharge Documenting (check all that apply): Patient Departure All imaging exams completed and their final reports reviewed: No Studies - Discharge Plan Condition: Good Disposition: HOME Patient Education Materials: Urinary Tract Infection in Women (DC), Hypertension (ED) Referrals: No Primary Care Phys,NOPCP [Primary Care Provider] - [facility] [Outside] - 2 Days - Billing Disposition and Condition Condition: GOOD Disposition: Home
== END 2018-12-25 11:43 | disposition home or self-care (01) ==
LOC: UCCORT 09:00
DX: N39.0 Urinary tract infection, site not specified (principal)
CPT/HCPCS: 81003; 84702; 87086; 99212; G0463

== ENCOUNTER 2019-01-06 15:04 | Emergency (ER) | payer OTHER ==
[2019-01-06 15:17] VITALS: BP 128/72
--- NOTE | 2019-01-06 15:59 | UC ---
Nausea/Vomiting/Diarrhea HPI - HPI Summary HPI Summary: 28-year-old female who had vomiting and diarrhea starting 2 days ago. She is much better today but needs a note for work. All of her coworkers have been ill with stomach bug over the past week. Any fever or chills. She is not presently . She is urinating normally. Last time she vomited was early this morning and she has been retaining fluids since then, last time she had diarrhea was yesterday. - History of Current Complaint Chief Complaint: UCGI Stated Complaint: STOMACH BUG Time Seen by Provider: 01/06/19 15:58 Hx Obtained From: Patient Hx Last Menstrual Period: 12/29/18 ?: No Onset/Duration: Sudden Onset Timing: Intermittent Episodes Lasting: Severity Initially: Moderate Severity Currently: None Pain Intensity: 5 Location: Other - Denies abdominal pain. Aggravating Factor(s): Nothing - She is feeling better Alleviating Factor(s): Nothing - Patient's feeling better Nausea/Vomiting Presence: None - Nausea and vomiting has resolved Vomiting Frequency: Every 3-4 hours Nausea/Vomiting Duration: 36-48 hours Vomiting Characteristics: Retching, Other - Vomiting has resolved Diarrhea Presence: Yes Diarrhea Frequency: Every 3-4 hours - Has resolved Diarrhea Characteristics: Watery - Allergies/Home Medications Allergies/Adverse Reactions: Allergies Allergy/AdvReac Type Severity Reaction Status Date / Time No Known Allergies Allergy Verified 01/06/19 15:17 Home Medications: Home Medications Venlafaxine EXT RELEASE CAP* [Effexor Xr CAP*] 37.5 mg PO DAILY 01/06/19 [ History Confirmed 01/06/19] PMH/Surg Hx/FS Hx/Imm Hx Previously Healthy: Yes - Surgical History Surgical History: Yes Surgery Procedure, Year, and Place: Ear Tubes as a child - Family History Known Family History: Positive: Cardiac Disease, Hypertension, Diabetes - Social History Alcohol Use: Rare Substance Use Type: Marijuana Substance Use Comment - Amount & Last Used: weekly Smoking Status (MU): Never Smoked Tobacco Have You Smoked in the Last Year: No Household Exposure Type: Cigarettes - Immunization History Most Recent Influenza Vaccination: none 2016 Review of Systems All Other Systems Reviewed And Are Negative: Yes Gastrointestinal: Positive: Vomiting, Diarrhea, Nausea - Nausea,vomiting, and diarrhea started 2 days ago but has resolved today. Is Patient Immunocompromised?: No Physical Exam Triage Information Reviewed: Yes Appearance: Well-Appearing, No Pain Distress, Well-Nourished Vital Signs: Initial Vital Signs Temp 98.1 F 01/06/19 15:11 Pulse 76 01/06/19 15:11 Resp 18 01/06/19 15:11 BP 128/72 01/06/19 15:11 Pulse Ox 97 01/06/19 15:11 Vital Signs Reviewed: Yes Eyes: Positive: Conjunctiva Clear ENT: Positive: Hearing grossly normal, Pharynx normal, TMs normal, Uvula midline Neck: Positive: Supple, Nontender, No Lymphadenopathy Respiratory: Positive: Lungs clear, Normal breath sounds, No respiratory distress, No accessory muscle use Cardiovascular: Positive: RRR, No Murmur, Pulses Normal, Brisk Capillary Refill Abdomen Description: Positive: Nontender, No Organomegaly, Soft. Negative: CVA Tenderness (R), CVA Tenderness (L), Distended, Guarding, Hepatomegaly, McBurney' s Point Tenderness, Splenomegaly Bowel Sounds: Positive: Present Musculoskeletal Exam: Normal Neurological Exam: Normal Psychological Exam: Normal Skin Exam: Normal Naus/Vom/Diarrhea Course/Dx - Course Course Of Treatment: Patient is comfortable here. She basically needs a note to return to work. She can return to work on Friday and increase fluids and return to her regular diet over the next 24-48 hours. - Differential Dx/Diagnosis Provider Diagnosis: Diarrhea, Vomiting Condition At Discharge: Good Discharge ED - Sign-Out/Discharge Documenting (check all that apply): Patient Departure All imaging exams completed and their final reports reviewed: No Studies - Discharge Plan Condition: Good Disposition: HOME Patient Education Materials: Acute Nausea and Vomiting (ED), Acute Diarrhea (ED ) Forms: *Work Release Referrals: [facility] [Outside] No Primary Care Phys,NOPCP [Primary Care Provider] - Additional Instructions: Increase fluids, avoid fatty and spicy food for another 2-3 days. Follow up with your doctor if worsening symptoms - Billing Disposition and Condition Condition: GOOD Disposition: Home - Attestation Statements Provider Attestation: This patient was not seen by me. I was available for consult. TING
== END 2019-01-06 16:15 | disposition home or self-care (01) ==
LOC: UCEAST 15:04
DX: R19.7 Diarrhea, unspecified (principal); R11.2 Nausea with vomiting, unspecified
CPT/HCPCS: 99211; G0463

== ENCOUNTER 2019-01-24 16:50 | Emergency (ER) | payer OTHER ==
--- NOTE | 2019-01-24 17:16 | UC ---
Respiratory Complaint HPI - HPI Summary HPI Summary: One week of cough, congestion and subj. fevers. she took 2 days off of work. Occasional sore throat. Did not get flu shot this year. - History of Current Complaint Chief Complaint: UCRespiratory Stated Complaint: URI Time Seen by Provider: 01/24/19 17:11 Hx Obtained From: Patient Matt Last Menstrual Period: 12/29/18 - Allergies/Home Medications Allergies/Adverse Reactions: Allergies Allergy/AdvReac Type Severity Reaction Status Date / Time No Known Allergies Allergy Verified 01/24/19 17:10 PMH/Surg Hx/FS Hx/Imm Hx Previously Healthy: Yes Psychological History: Depression - Surgical History Surgical History: Yes Surgery Procedure, Year, and Place: Ear Tubes as a child - Family History Known Family History: Positive: Cardiac Disease, Hypertension, Diabetes - Social History Alcohol Use: Rare Substance Use Type: Marijuana Substance Use Comment - Amount & Last Used: weekly Smoking Status (MU): Never Smoked Tobacco Have You Smoked in the Last Year: No Household Exposure Type: Cigarettes - Immunization History Most Recent Influenza Vaccination: none 2016 Review of Systems All Other Systems Reviewed And Are Negative: Yes Constitutional: Negative: Fever, Chills, Fatigue Skin: Negative: Rash ENT: Positive: Sore Throat, Sinus Congestion Respiratory: Positive: Cough Gastrointestinal: Negative: Nausea Musculoskeletal: Positive: Myalgia. Negative: Arthralgia Neurological: Negative: Headache Physical Exam Triage Information Reviewed: Yes Appearance: Well-Appearing Vital Signs Reviewed: Yes Eyes: Positive: Conjunctiva Clear ENT: Positive: Pharynx normal, TMs normal, Uvula midline Neck exam: Normal Respiratory Exam: Normal Cardiovascular Exam: Normal Neurological: Positive: Alert Skin: Negative: Rashes Respiratory Course/Dx - Course Course Of Treatment: Cough x 1 week w/ no resp distress. Afebrile and exam unremarkable. Likely viral. No indication for antibx but will tx cough. - Differential Dx/Diagnosis Differential Diagnosis/HQI/PQRI: Bronchitis, Lower Resp Infection, Other Provider Diagnosis: Acute bronchitis Discharge ED - Sign-Out/Discharge Documenting (check all that apply): Patient Departure All imaging exams completed and their final reports reviewed: No Studies - Discharge Plan Condition: Good Disposition: HOME Prescriptions: Benzonatate CAP* [Tessalon 100 MG CAP*] 100 mg PO TID 7 Days #21 cap Patient Education Materials: Acute Bronchitis (ED) Forms: *Work Release Referrals: No Primary Care Phys,NOPCP [Primary Care Provider] - Additional Instructions: If worsening please follow up with pcp. - Billing Disposition and Condition Condition: GOOD Disposition: Home
[2019-01-24 17:23] VITALS: BP 140/72
== END 2019-01-24 17:41 | disposition home or self-care (01) ==
LOC: UCEAST 16:50
DX: J20.9 Acute bronchitis, unspecified (principal); J02.9 Acute pharyngitis, unspecified; R09.81 Nasal congestion; F32.9 Major depressive disorder, single episode, unspecified
CPT/HCPCS: 99212; G0463

== ENCOUNTER 2019-06-16 16:30 | Emergency (ER) | payer OTHER ==
[2019-06-16 17:43] VITALS: BP 140/67
--- NOTE | 2019-06-16 19:01 | UC ---
FLU HPI - HPI Summary HPI Summary: 28-year-old woman comes in with a chief complaint of influenza-like symptoms for about 5 days. She's been having some chills headache body aches. No rhinorrhea. She does have sore throat. No chest congestion shortness breath. Also requests a test. With her feeling ill she is also wondering about the possibility of diabetes.. Denies any burning with urination. - History of Current Complaint Chief Complaint: UCRespiratory Stated Complaint: SORE THROAT/EARS/ACHY Time Seen by Provider: 06/16/19 18:50 Hx Last Menstrual Period: 05/21/19 Pain Intensity: 5 - Allergy/Home Medications Allergies/Adverse Reactions: Allergies Allergy/AdvReac Type Severity Reaction Status Date / Time No Known Allergies Allergy Verified 06/16/19 17:43 Home Medications: Home Medications Venlafaxine EXT RELEASE CAP* [Effexor Xr CAP*] 75 mg PO DAILY 01/06/19 [History Confirmed 06/16/19] PMH/Surg Hx/FS Hx/Imm Hx Previously Healthy: Yes - Surgical History Surgical History: Yes Surgery Procedure, Year, and Place: Ear Tubes as a child - Family History Known Family History: Positive: Cardiac Disease, Hypertension, Diabetes - Social History Alcohol Use: Rare Substance Use Type: Marijuana Substance Use Comment - Amount & Last Used: weekly Smoking Status (MU): Never Smoked Tobacco Have You Smoked in the Last Year: No Household Exposure Type: Cigarettes - Immunization History Most Recent Influenza Vaccination: none 2016 Review of Systems All Other Systems Reviewed And Are Negative: Yes Constitutional: Positive: Other - SEE HPI Skin: Positive: Negative Eyes: Positive: Negative ENT: Positive: Sore Throat Respiratory: Positive: Cough Cardiovascular: Positive: Negative Gastrointestinal: Positive: Negative Genitourinary: Positive: Negative Motor: Positive: Negative Neurovascular: Positive: Negative Musculoskeletal: Positive: Myalgia Neurological/Mental Status: Positive: Headache Psychological: Positive: Negative Is Patient Immunocompromised?: No Physical Exam Triage Information Reviewed: Yes Appearance: No Pain Distress, Well-Nourished, Ill-Appearing - MILD Vital Signs: Initial Vital Signs Temp 98.2 F 06/16/19 17:34 Pulse 76 06/16/19 17:34 Resp 18 06/16/19 17:34 BP 140/67 06/16/19 17:34 Pulse Ox 97 06/16/19 17:34 Vital Signs Reviewed: Yes Eye Exam: Normal Eyes: Positive: Conjunctiva Clear ENT: Positive: Pharyngeal erythema, Nasal drainage, TMs normal Neck: Positive: Supple Respiratory: Positive: Lungs clear, Normal breath sounds, No respiratory distress Cardiovascular: Positive: RRR Musculoskeletal: Positive: Strength Intact, ROM Intact Neurological: Positive: Alert Psychological: Positive: Age Appropriate Behavior Skin Exam: Normal Flu Course/Dx - Course Course Of Treatment: Blood sugar normal. Urine does have some white blood cells and it. Patient denies any UTI symptoms so therefore will not treat for UTI at this time. Influenza and strep negative. Plan is to treat symptomatically and get reevaluated if not improving or worse. - Differential Dx/Diagnosis Provider Diagnosis: Influenza-like illness Discharge ED - Sign-Out/Discharge Documenting (check all that apply): Patient Departure All imaging exams completed and their final reports reviewed: No Studies - Discharge Plan Condition: Stable Disposition: HOME Patient Education Materials: Viral Syndrome (ED) Referrals: [facility] [place] [facility] [Outside] Additional Instructions: FOLLOW UP WITH YOUR DOCTOR IF NOT COMPLETELY IMPROVED. GET REEVALUATED SOONER IF NOT IMPROVED OR WORSE OR ANY QUESTIONS OR CONCERNS. - Billing Disposition and Condition Condition: STABLE Disposition: Home
[2019-06-16 19:26] LABS: Influenza A Molecular Negative (Negative); Influenza B Molecular Negative (Negative)
== END 2019-06-16 19:56 | disposition home or self-care (01) ==
LOC: UCCORT 16:30
DX: J02.9 Acute pharyngitis, unspecified (principal); M79.10 Myalgia, unspecified site; R51 Headache; R05 Cough
CPT/HCPCS: 81003; 84702; 87086; 87651; 99211; G0463